=== PATIENT | male | born 1955 | race Caucasian/White ===

== ENCOUNTER 2020-10-07 10:35 | Day surgery (SDC) | payer MEDICARE ==
[2020-10-07] VITALS (8 sets, daily range): BP systolic 113–137; BP diastolic 73–89; PULSE 74–83; TEMP 97.7–98.1
[~2020-10-07] VITALS: Ht 177.8 cm; Wt 103.6 kg
[2020-10-07] MEDS ORDERED: ASPIRIN 81M81 MG/TA2 PO (11:59)
[2020-10-07] MEDS ORDERED: LOTREL 10 MG-401 CAP PO (12:00)
[2020-10-07] MEDS ORDERED: WELLBUTRIN XL300 M1 PO (12:00)
[2020-10-07] MEDS ORDERED: ZOCOR 20MG20 MG PO (12:01)
[2020-10-07] MEDS ORDERED: NEURONTIN300 MG/CAP PO (12:01)
[2020-10-07] MEDS ORDERED: TRELEGY ELLIPT1 EACH IH (12:02)
[2020-10-07] MEDS ORDERED: ULTRAM 50MG TAB50 MG PO (12:02)
[2020-10-07] MEDS ORDERED: INDERAL40 MG PO (12:03)
--- NOTE | 2020-10-07 13:37 | NUR ---
Patient returns to room 4 per cart from PACU accompanied by Quiana MANZANARES and is awake and alert. IV fluids infusing and site is free of redness or swelling. Urinal in place and has dribbled bright red blood only. IV to INT and ambulatory to BR on oxygen tank at 4L per nasal cannula.
--- NOTE | 2020-10-07 13:52 | NUR ---
Returns to room and remains on oxygen at 4L per nasal cannula. Unable to urinate. Drinking water and eating muffin. Spouse in room.
--- NOTE | 2020-10-07 14:07 | NUR ---
Continues to drink water and rest on edge of cart.
--- NOTE | 2020-10-07 14:22 | NUR ---
Amulatory to bathroom on oxygen. Able to void and returns to room. States urine was bloody. Resting on cart and drinking more water.
--- NOTE | 2020-10-07 14:37 | NUR ---
Drinking water and denies pain or nausea.
--- NOTE | 2020-10-07 15:00 | NUR ---
Again voids and states it is less blood and more urine. Has done well forcing fluids. Oxygen down to 2L per nasal cannula and sats 90%.
--- NOTE | 2020-10-07 15:35 | NUR ---
INT discontinued and is dressed. Oxygen removed and sats 90%. Dismissal instructions given and voices understanding of these. Provided urinal for ride home.
--- NOTE | 2020-10-07 15:43 | NUR ---
Patient dismissed to home driven by spouse and taken to the front door per wheelchair and assisted into vehicle with instructions in hand.
[2021-02-12] MEDS ORDERED: NORCO 325 MG-7.1 TAB PO (10:35)
== END 2020-10-07 15:43 | disposition home or self-care (01) ==
LOC: SDCO 10:35
DX: C67.8 Malignant neoplasm of overlapping sites of bladder (principal); C67.0 Malignant neoplasm of trigone of bladder; K40.90 Unilateral inguinal hernia, without obstruction or gangrene, not specified as recurrent; K42.9 Umbilical hernia without obstruction or gangrene; J44.9 Chronic obstructive pulmonary disease, unspecified; M19.90 Unspecified osteoarthritis, unspecified site; E78.00 Pure hypercholesterolemia, unspecified; E78.5 Hyperlipidemia, unspecified; E78.2 Mixed hyperlipidemia; I10 Essential (primary) hypertension; F17.210 Nicotine dependence, cigarettes, uncomplicated; Z85.828 Personal history of other malignant neoplasm of skin; Z79.82 Long term (current) use of aspirin; Z20.822 Contact with and (suspected) exposure to COVID-19; Z79.899 Other long term (current) drug therapy; Z88.0 Allergy status to penicillin
CPT/HCPCS: C2617; J0690; J1100; J2405; J2704; J3010; J7120; Q9967

== ENCOUNTER 2020-11-04 07:19 | Day surgery (SDC) | payer MEDICARE ==
[2020-11-04] VITALS (8 sets, daily range): BP systolic 94–118; BP diastolic 58–77; PULSE 58–72; TEMP 98.1–98.5
[~2020-11-04] VITALS: Ht 177.8 cm; Wt 103.6 kg
[~2020-11-04 07:19] MED LIST: ASPIRIN 81M81 MG/TA2 PO; INDERAL40 MG PO; LOTREL 10 MG-401 CAP PO; NEURONTIN300 MG/CAP PO; TRELEGY ELLIPT1 EACH IH; ULTRAM 50MG TAB50 MG PO; WELLBUTRIN XL300 M1 PO; ZOCOR 20MG20 MG PO
--- NOTE | 2020-11-04 11:50 | NUR ---
Patient returns to room 6 per cart from PACU accompanied by Heaven MANZANARES and is awake and alert. Temp 98.4 and sats 94% on 3L per nasal cannula. SCD's in place. HOB at 30 degrees. Patient received spinal anesthetic and states that he is having mild tingling in upper thighs. Legs warm to touch and +2 bilateral pedal pulses noted. IV fluids infusing now at TKO. Requesting snack and given muffin and calderon crackers.
--- NOTE | 2020-11-04 12:05 | NUR ---
Tolerated muffin and crackers. Denies pain. Wiggling legs. Encouraged deep breathing.
--- NOTE | 2020-11-04 12:20 | NUR ---
Patient moving legs and able to wiggle toes. Denies pain or nausea. Remains on oygen at 3L per nasal cannula.
--- NOTE | 2020-11-04 12:35 | NUR ---
Resting and moving legs freely. Remains on oxygen and O2 turned down to 2L. Continues to take deep breathes. Denies need to urinate.
--- NOTE | 2020-11-04 12:50 | NUR ---
Drinking water and sipping on coffee.
--- NOTE | 2020-11-04 13:14 | NUR ---
Sats down to 85% on 2L per nasal cannula. Oxygen back up to 3L per nasal cannula.
--- NOTE | 2020-11-04 13:20 | NUR ---
Continues to drink water and sip on coffee. Remains on O2 at 3L per nasal cannula. Denies pain or nausea.
--- NOTE | 2020-11-04 13:43 | NUR ---
Oxygen removed and assisted to the bathroom. Call light in reach.
--- NOTE | 2020-11-04 13:50 | NUR ---
Returns to room and room air sats 76%. States it drops that low at home when I check it with my pulse ox. Placed on 3L per nasal cannula. Will continue to monitor.
--- NOTE | 2020-11-04 13:55 | NUR ---
Dr. Alston notified and no orders. Dr. Alston states that he talked with the patient pre-op and patient refuses to stay in the hospital. States that the patient may be discharged to home after voiding and with low oxygen sats. This nurse strongly encouraged the patient to follow up PCP and be referred to pulmonary.
--- NOTE | 2020-11-04 14:15 | NUR ---
Again up to the bathroom and is able to void. Returns to room and dresses self. INT needle discontinued. Given dismissal instructions and voices understanding of home cares and follow up. Again stressed the importance of following up with PCP for low oxygen sats.
--- NOTE | 2020-11-04 14:23 | NUR ---
Patient dismissed to home driven by spouse and taken to the front door per wheelchair and assisted into vehicle with dismissal instructions in hand.
[2021-02-12] MEDS ORDERED: NORCO 325 MG-7.1 TAB PO (10:35)
== END 2020-11-04 14:23 | disposition home or self-care (01) ==
LOC: SDCO 07:19
DX: C67.8 Malignant neoplasm of overlapping sites of bladder (principal); J44.9 Chronic obstructive pulmonary disease, unspecified; E78.2 Mixed hyperlipidemia; F17.210 Nicotine dependence, cigarettes, uncomplicated; Z79.82 Long term (current) use of aspirin; Z85.828 Personal history of other malignant neoplasm of skin
CPT/HCPCS: C1769; J0690; J2250; J2704; J3010; J7120

== ENCOUNTER → 2021-02-17 | Outpatient (CLI) | payer MEDICARE ==
[~2021-02-17] VITALS: Ht 177.8 cm; Wt 101.7 kg
[2021-02-17] VITALS (9 sets, daily range): BP systolic 115–135; BP diastolic 74–91; PULSE 77–84; TEMP 98.3
[~2021-02-17] MED LIST changes: +LOTENSIN40 MG PO; +MOTRIN 800800 MG/TAB PO; +NORCO 325 MG-7.1 TAB PO; +XYZAL5 MG PO
== END ==
LOC: COL.RAD 09:36
DX: C80.1 Malignant (primary) neoplasm, unspecified (principal); C79.51 Secondary malignant neoplasm of bone
CPT/HCPCS: 27406; 27433

== ENCOUNTER 2021-04-16 13:13 | Day surgery (SDC) | payer MEDICARE ==
[~2021-04-16] VITALS: Ht 177.8 cm; Wt 102.9 kg
[~2021-04-16 13:13] MED LIST changes: -LOTENSIN40 MG PO; -MOTRIN 800800 MG/TAB PO; -XYZAL5 MG PO
[2021-04-16] MEDS ORDERED: MOTRIN 800800 MG/TAB PO (13:45)
[2021-04-16] MEDS ORDERED: LOTENSIN40 MG PO (13:48)
[2021-04-16] MEDS ORDERED: XYZAL5 MG PO (13:49)
[2021-04-16 13:50] VITALS: BP 165/95; PULSE 79; TEMP 98.2
[2021-04-16 17:23] VITALS: BP 158/93; PULSE 88
--- NOTE | 2021-04-16 17:23 | NUR ---
Patient returns to room 2 per cart from surgery and is awake and alert. Temp 97.0 and sats 92% on 5L per nasal cannula. Right port a catheter site incisions covered with Exofin skin glue. Wound edges well approximated. Siderails up x2 and call light in reach. Spouse in room.
[2021-04-16 17:38] VITALS: BP 167/95; PULSE 86
--- NOTE | 2021-04-16 17:38 | NUR ---
Eating muffin, crackers, and drinking coffee.
[2021-04-16 17:53] VITALS: BP 156/87; PULSE 89
--- NOTE | 2021-04-16 17:53 | NUR ---
Tolerated muffin and coffee. IV discontinued and site is free of redness. Sats maintained at 89-92 on 5L per nasal cannula. Assisted patient with dressing.
--- NOTE | 2021-04-16 18:07 | NUR ---
Dismissal instructions signed and patient and spouse both verbalize understanding of these. Provided port a catheter packet.
--- NOTE | 2021-04-16 18:11 | NUR ---
Patient dismissed to home driven by spouse and taken to the front door per wheelchair and assisted into vehicle with instructions in hand.
== END 2021-04-16 18:11 | disposition home or self-care (01) ==
LOC: SDCO 13:13
DX: C24.9 Malignant neoplasm of biliary tract, unspecified (principal); I10 Essential (primary) hypertension; E78.5 Hyperlipidemia, unspecified; M19.90 Unspecified osteoarthritis, unspecified site; J44.9 Chronic obstructive pulmonary disease, unspecified; Z79.899 Other long term (current) drug therapy; Z79.82 Long term (current) use of aspirin; Z87.891 Personal history of nicotine dependence; Z85.51 Personal history of malignant neoplasm of bladder
CPT/HCPCS: C1788; J0690; J1644; J7120

== ENCOUNTER 2021-06-12 13:35 | Inpatient (IN) | payer MEDICARE ==
[~2021-06-12] VITALS: Ht 177.8 cm; Wt 103.8 kg
[2021-06-12] VITALS (82 sets, daily range): BP systolic 134–163; BP diastolic 93–106; PULSE 82; TEMP 97.4; O2SAT 82–96
[~2021-06-12 13:35] MED LIST changes: +LOTENSIN40 MG PO; +MOTRIN 800800 MG/TAB PO; +XYZAL5 MG PO
[2021-06-12 14:28] LABS: BASO # 0.1 K/mm3 (0.0-0.2); BASO % 1.3 % (0.0-2.0); EOS # 0.1 K/mm3 (0.0-0.7); EOS % 2.1 % (0.0-4.0); GRAN # 2.6 K/mm3 (1.4-6.5); GRAN % 68.9 % (42.2-75.2); HEMATOCRIT 39.1 % (42.0-52.0); HEMOGLOBIN 12.5 g/dl (13.5-18.0); LYMPH # 0.6 K/mm3 (1.2-3.4); LYMPH % 16.6 % (20.0-51.0); MEAN CELL VOLUME 96 fl (80.0-100.0); MEAN CORPUSCULAR HEMOGLOBIN 31 pg (27-31); MEAN CORPUSCULAR HGB CONC 32 g/dl (33.0-37.0); MONO # 0.4 K/mm3 (0.1-0.6); MONO % 10.8 % (1.7-9.3); RED BLOOD COUNT 4.09 M/mm3 (4.20-5.60); REDCELL DISTRIBUTION WIDTH-CV 15.1 % (11.5-14.5)
[2021-06-12 14:50] LABS: ALBUMIN 3.1 gm/dL (3.4-4.8); BILIRUBIN,TOTAL 0.8 mg/dL (0.2-1.2); C-REACTIVE PROTEIN 1.83 mg/dL (0.00-0.50); CALCIUM 8.7 mg/dL (8.4-10.2); CREATININE, serum 0.81 mg/dL (0.72-1.25); POTASSIUM 4.5 mmol/L (3.5-4.5); TOTAL PROTEIN 6.6 gm/dL (6.2-8.1)
[2021-06-12 14:54] LABS: PLATELET COUNT 39 K/mm3 (130-400)
[2021-06-12 14:55] LABS: TROPONIN-I 0.01 ng/mL (0.00-0.033)
[2021-06-12 15:14] LABS: INR 1.1 (0.8-3.0)
[2021-06-12 15:17] LABS: PARTIAL THROMBOPLASTIN TIME 34.4 SECONDS (26.0-37.0)
[2021-06-12] MEDS ORDERED: FENTANYL 50MCG TD (15:36)
[2021-06-12] MEDS ORDERED: NORCO 325 MG-101 TAB PO (15:37)
[2021-06-12 18:56] LABS: HEMATOCRIT 37.1 % (42.0-52.0); HEMOGLOBIN 11.8 g/dl (13.5-18.0); MEAN CELL VOLUME 96 fl (80.0-100.0); MEAN CORPUSCULAR HEMOGLOBIN 31 pg (27-31); MEAN CORPUSCULAR HGB CONC 32 g/dl (33.0-37.0); RED BLOOD COUNT 3.86 M/mm3 (4.20-5.60)
[2021-06-12 19:00] LABS: PLATELET COUNT 38 K/mm3 (130-400)
--- NOTE | 2021-06-12 21:13 | NUR ---
Patient arrives to ICU room 7 via ED stretcher. Patient is alert and oriented; he transfers independently to ICU bed with even, steady gait. Initial BP of 163/106; other vitals within normal limits. BP 134/93 after settled. Patient arrives receiving 6L oxygen via nasal cannula, tolerating well. Heparin drip infusing at 1850 units/hr to a right chest port. Heparin placed on standby upon patient's arrival due to critical Xa received by this RN at approximately 2100.
--- NOTE | 2021-06-12 21:30 | NUR ---
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 Patient states cruz was sent home with , Radha. Patient denies having any dentures, partials, or hearing aids. Belongings placed in patient closet.
[2021-06-12] MEDS ORDERED: SENNA-LAX8.6 MG PO (21:51)
[2021-06-12 23:38] LABS: HEMOGLOBIN 10.8 g/dl (13.5-18.0); MEAN CELL VOLUME 95 fl (80.0-100.0); MEAN CORPUSCULAR HEMOGLOBIN 30 pg (27-31); MEAN CORPUSCULAR HGB CONC 32 g/dl (33.0-37.0); RED BLOOD COUNT 3.56 M/mm3 (4.20-5.60); REDCELL DISTRIBUTION WIDTH-CV 15.2 % (11.5-14.5)
[2021-06-12 23:55] LABS: HEMATOCRIT 33.8 % (42.0-52.0)
[2021-06-12 23:56] LABS: PLATELET COUNT 38 K/mm3 (130-400)
[2021-06-13] VITALS (409 sets, daily range): BP systolic 116–140; BP diastolic 52–90; PULSE 67–98; TEMP 97.5–98.5; O2SAT 71–99
[2021-06-13 06:24] LABS: HEMOGLOBIN 11.1 g/dl (13.5-18.0); MEAN CELL VOLUME 94 fl (80.0-100.0); MEAN CORPUSCULAR HEMOGLOBIN 31 pg (27-31); MEAN CORPUSCULAR HGB CONC 32 g/dl (33.0-37.0); RED BLOOD COUNT 3.64 M/mm3 (4.20-5.60); REDCELL DISTRIBUTION WIDTH-CV 15.1 % (11.5-14.5)
[2021-06-13 06:29] LABS: HEMATOCRIT 34.3 % (42.0-52.0)
[2021-06-13 06:30] LABS: PLATELET COUNT 40 K/mm3 (130-400)
[2021-06-13 06:39] LABS: CALCIUM 8.3 mg/dL (8.4-10.2); CREATININE, serum 0.7 mg/dL (0.72-1.25); POTASSIUM 4.1 mmol/L (3.5-4.5)
--- NOTE | 2021-06-13 07:00 | NUR ---
RECEIVED REPORT FROM GLENNA PATEL. PT SLEEPING ON 7L HFNC. VSS. CALL LIGHT AND URINAL WITHIN REACH.
[2021-06-13 12:14] LABS: HEMOGLOBIN 11.8 g/dl (13.5-18.0); MEAN CELL VOLUME 97 fl (80.0-100.0); MEAN CORPUSCULAR HEMOGLOBIN 31 pg (27-31); MEAN CORPUSCULAR HGB CONC 32 g/dl (33.0-37.0); PLATELET COUNT 51 K/mm3 (130-400); RED BLOOD COUNT 3.78 M/mm3 (4.20-5.60); REDCELL DISTRIBUTION WIDTH-CV 15.5 % (11.5-14.5)
[2021-06-13 12:18] LABS: HEMATOCRIT 36.8 % (42.0-52.0)
--- NOTE | 2021-06-13 12:58 | NUR ---
Child Care Counselor visited briefly with patient. Nothing else needed at this time.
--- NOTE | 2021-06-13 14:17 | NUR ---
SW met with patient to complete intake. Patient states that he lives with his Radha [phone] in [place]. Patient provides that he does not utilize DME at this time and is independent with ADL's, PCP is Dr. Cleveland, pharmacy he provides is in [place], DPOA is spouse. Patient provides that he plans to return to his home up on DC. SW will continue to follow. DC Plan: home with spouse in [place]
--- NOTE | 2021-06-13 14:37 | NUR ---
REPORT CALLED TO GLENNA DIALLO. ALL PERSONAL BELONGINGS SENT WITH PT. PT TRANSFERRED VIA WC ON 7L HFNC IN . ACCOMPANYING PT.
--- NOTE | 2021-06-13 15:00 | NUR ---
Patient arrived to [facility] about this time, alert/oriented, present in the room, reports he received pain pill around 1430 and stated it is starting to help/ he take [place] every 4-6 hours at home, lungs are CTA/ diminished throughout, he denies resp.difficulty at rest, BLE 2+ edema, heart RRR/SR on tele, some right calf discomfort and there is an ordered BLE doppler for 06/15/21, he is on 6L. o2, Hep gtt @ 15.5, denies needs, I will continue to monitor
--- NOTE | 2021-06-13 19:09 | NUR ---
Hepxa 0.51 WNL, no change and continue TRA 15.5/hr, next Hepxa 06/14/21 @ 0600
--- NOTE | 2021-06-13 20:00 | NUR ---
Patient is resting in bed, alert and oriented x 4, 7L O2 NC. Hep gtt at 15.5ml/hr/ Telemetry in place, NSR. Complains of pain, PRN provided. Assessment completed, medications provided. No further needs at this time. Call light within reach.
[2021-06-13 20:39] LABS: BASO % 1.1 % (0.0-2.0); EOS % 1.4 % (0.0-4.0); GRAN # 1.8 K/mm3 (1.4-6.5); GRAN % 63.7 % (42.2-75.2); HEMATOCRIT 38.1 % (42.0-52.0); HEMOGLOBIN 12.4 g/dl (13.5-18.0); LYMPH # 0.6 K/mm3 (1.2-3.4); LYMPH % 19.8 % (20.0-51.0); MEAN CELL VOLUME 96 fl (80.0-100.0); MEAN CORPUSCULAR HEMOGLOBIN 31 pg (27-31); MEAN CORPUSCULAR HGB CONC 33 g/dl (33.0-37.0); MONO # 0.4 K/mm3 (0.1-0.6); PLATELET COUNT 66 K/mm3 (130-400); RED BLOOD COUNT 3.96 M/mm3 (4.20-5.60); REDCELL DISTRIBUTION WIDTH-CV 15.7 % (11.5-14.5)
[2021-06-14 04:24] VITALS: BP 120/58; PULSE 63; TEMP 98.3
--- NOTE | 2021-06-14 06:57 | NUR ---
Patient had an unventful night. He just asked for pain medication once. Continues with the same rate of HEP DRIP. Report given to day RN.
[2021-06-14 08:00] VITALS: BP 139/87; PULSE 76; TEMP 98.5
--- NOTE | 2021-06-14 08:15 | NUR ---
Assessment completed, alert/oriented, vital signs stable, currently on 6-7L. o2 and sats are 90-95%, lungs are diminished throughout but CTA, heparin gtt continues @ 20.5ml/hr and awaiting HepXa results at this time, heart RRR/distal pulses are palpable, trace-1+ edema to BLE / doppler ordered for 06/14/21, he is up to his sink indepedently this morning to brush his teeth and wash up, we have ordered his breakfast, he has taken morning medications, denies other needs at this time
--- NOTE | 2021-06-14 08:25 | NUR ---
HepXa 0.44, no rate chage, continue TRA 20.5 ml /hr, next level recheck 06/15/21
[2021-06-14 11:38] VITALS: BP 126/75; PULSE 73; TEMP 97.6
[2021-06-14 17:00] VITALS: BP 121/73; PULSE 73; TEMP 98.1
--- NOTE | 2021-06-14 19:50 | NUR ---
Patient is standing at the door of his room. Alert and oriented x 4, reports continues with pain in his back, he just took PRN norco from day shift. Continuous with 6L O2 NC. Continuous with hep gtt. Assessment completed, medications provided. No further needs at this time. Call light within reach.
[2021-06-14 20:35] VITALS: BP 125/73; PULSE 86; TEMP 97.8
[2021-06-15 00:20] VITALS: BP 100/51; PULSE 79; TEMP 98.7
[2021-06-15 03:43] VITALS: BP 107/59; PULSE 76; TEMP 98.4
--- NOTE | 2021-06-15 07:16 | NUR ---
Patient has had a calm night. Complained about some blisters next to his cath port. Continues with back pain. PRN provided. Hep gtt running 15.5ml/hr. Report given to day RN.
[2021-06-15 08:54] VITALS: BP 109/88; PULSE 75; TEMP 97.3
[2021-06-15 10:17] LABS: BASO % 0.8 % (0.0-2.0); EOS # 0.1 K/mm3 (0.0-0.7); EOS % 3.5 % (0.0-4.0); GRAN # 1.4 K/mm3 (1.4-6.5); GRAN % 54.4 % (42.2-75.2); LYMPH # 0.6 K/mm3 (1.2-3.4); LYMPH % 24.3 % (20.0-51.0); MEAN CELL VOLUME 98 fl (80.0-100.0); MEAN CORPUSCULAR HEMOGLOBIN 31 pg (27-31); MEAN CORPUSCULAR HGB CONC 32 g/dl (33.0-37.0); MONO # 0.4 K/mm3 (0.1-0.6); PLATELET COUNT 57 K/mm3 (130-400); RED BLOOD COUNT 3.57 M/mm3 (4.20-5.60)
[2021-06-15 10:21] LABS: HEMATOCRIT 34.8 % (42.0-52.0)
[2021-06-15 10:24] LABS: CALCIUM 8.4 mg/dL (8.4-10.2); CREATININE, serum 0.77 mg/dL (0.72-1.25); POTASSIUM 4.3 mmol/L (3.5-4.5)
--- NOTE | 2021-06-15 10:27 | NUR ---
PT RESTING IN BED. MORNING MEDICATIONS GIVEN. SHIFT ASSESSMENT COMPLETED. PORT FLUSHES AND HAS GOOD BLOOD RETURN. DENIES ANY PAIN. HEPARIN GTT AT 15.5. CONTINUING TO MONITOR.
[2021-06-15 12:00] VITALS: BP 120/66; PULSE 87; TEMP 97.6
--- NOTE | 2021-06-15 12:03 | NUR ---
First visit from the ballast cleaning machine operator. prayed with patient. No other needs right now.
[2021-06-15 16:00] VITALS: BP 134/57; PULSE 93; TEMP 97.6
[2021-06-15 21:22] VITALS: BP 139/79; PULSE 79; TEMP 98.1
--- NOTE | 2021-06-15 22:28 | NUR ---
PT SITTING ON SIDE OF BED, STATING HAS SOME REFLUX. CALLED TO SEE WHAT HE TAKES AT HOME, GOT ORDER FOR 40 MG PANTOPROZOLE FROM [facility]. PT STATES PAIN IS ABOUT 5/10. REQUESTED NORCO. REQUESTED NORCO BEFORE PROCEDURE TOMORROW. ASSESSMENT COMPLETED.
[2021-06-16] VITALS (15 sets, daily range): BP systolic 103–144; BP diastolic 56–96; PULSE 64–88; TEMP 9
[2021-06-16 05:25] LABS: BASO % 1.3 % (0.0-2.0); EOS # 0.1 K/mm3 (0.0-0.7); EOS % 3.9 % (0.0-4.0); GRAN # 1.1 K/mm3 (1.4-6.5); GRAN % 49.8 % (42.2-75.2); HEMATOCRIT 37.4 % (42.0-52.0); HEMOGLOBIN 11.5 g/dl (13.5-18.0); LYMPH # 0.6 K/mm3 (1.2-3.4); LYMPH % 25.8 % (20.0-51.0); MEAN CELL VOLUME 99 fl (80.0-100.0); MEAN CORPUSCULAR HEMOGLOBIN 30 pg (27-31); MEAN CORPUSCULAR HGB CONC 31 g/dl (33.0-37.0); MEAN PLATELET VOLUME 11.6 fl (7.4-10.4); MONO # 0.4 K/mm3 (0.1-0.6); MONO % 18.8 % (1.7-9.3); PLATELET COUNT 78 K/mm3 (130-400); RED BLOOD COUNT 3.78 M/mm3 (4.20-5.60); REDCELL DISTRIBUTION WIDTH-CV 16.6 % (11.5-14.5)
[2021-06-16 05:47] LABS: CALCIUM 9.3 mg/dL (8.4-10.2); CREATININE, serum 0.79 mg/dL (0.72-1.25); POTASSIUM 4.4 mmol/L (3.5-4.5)
[2021-06-16 05:52] LABS: PROTHROMBIN TIME 11.2 SECONDS (9.7-12.8)
--- NOTE | 2021-06-16 06:18 | NUR ---
Pt had an uneventful night. Pt slept most of night, heparin gtt running at 1550 units/hr. Pt heparin gtt will be stopped at 0630 for IVC filter placement surgery per orders. Pt has been NPO since midnight, small sip for pain medication and protonix. All medications given, call light in reach.
--- NOTE | 2021-06-16 08:22 | NUR ---
SEE MERGE FOR ALL MEDICATION ADMINISTRATION TIMES/DOSAGES AND INTRA/POST PROCEDURE SEDATION ASSESSMENTS.
--- NOTE | 2021-06-16 09:13 | NUR ---
MORNING MEDICATIONS GIVEN. SHIFT ASSESSMENT COMPLETED. DENIES ANY PAIN. IVC FILTER PLACEMENT TODAY. HEPARIN GTT STOPPED AT THIS TIME PER ORDERS. WILL CONTINUE TO MONITOR.
--- NOTE | 2021-06-16 11:31 | NUR ---
The patient may be able to discharge tomorrow. SW met with the patient to follow up and review discharge plan. The patient states that he still plans on returning home with his . He confirms that he already has continuous home oxygen from [facility]. He had no concerns for SW. *Discharge plan: home with *
--- NOTE | 2021-06-16 23:05 | NUR ---
PT IS PLEASANT ALERT AND ORIENTATED. WAS CURIOUS ABOUT BEING ABLE TO GET DISCHARGED WITH IBUPROFEN PRESCRIPTION INSTEAD OF TYLENOL DUE TO COST. PT STATES PAIN 10. NO OTHER NEEDS.
[2021-06-17 04:19] VITALS: BP 136/85; PULSE 83; TEMP 97.6
--- NOTE | 2021-06-17 06:01 | NUR ---
Pt had an uneventful night. Pt slept most of night. Pt states pain of 6/10 in back and generalized where cancer is at. Pt requested and took [place] at approximately this am. Pt states improvement to 2/10 with pain medication. Pt wanted to try to get refill prescription of Ibuprofen and not tylenol for discharge. All needs met, call light in reach.
[2021-06-17 06:44] LABS: HEMATOCRIT 38.3 % (42.0-52.0); HEMOGLOBIN 11.5 g/dl (13.5-18.0); MEAN CELL VOLUME 103 fl (80.0-100.0); MEAN CORPUSCULAR HEMOGLOBIN 31 pg (27-31); MEAN CORPUSCULAR HGB CONC 30 g/dl (33.0-37.0); PLATELET COUNT 123 K/mm3 (130-400); RED BLOOD COUNT 3.72 M/mm3 (4.20-5.60); REDCELL DISTRIBUTION WIDTH-CV 17.2 % (11.5-14.5)
[2021-06-17 07:01] LABS: CALCIUM 8.7 mg/dL (8.4-10.2); CREATININE, serum 0.75 mg/dL (0.72-1.25); POTASSIUM 4.2 mmol/L (3.5-4.5)
[2021-06-17 07:29] LABS: ANISOCYTOSIS 1+; BAND 2 % (0-10); BASOPHIL 2 % (0-2); EOSINOPHIL 4 % (0-4); LYMPHOCYTE 23 % (20.0-51.0); NEUTROPHILS 45 % (42.0-75.2); NUCLEATED RED BLOOD CELL 2 (0-6); POLYCHROMASIA 1+
[2021-06-17 07:30] LABS: HYPOCHROMIA 1+; PLATELET ESTIMATE DECREASED (NORMAL)
--- NOTE | 2021-06-17 08:00 | NUR ---
Pt. progressing with plan of care. Plan for pt. to get am meds and possible discharge today.
[2021-06-17 08:30] VITALS: BP 109/61; PULSE 90; TEMP 97.6
[2021-06-17] MEDS ORDERED: TYLENOL 325MG325 MG PO (09:43)
[2021-06-17] MEDS ORDERED: ELIQUIS 5MG PO (09:46)
--- NOTE | 2021-06-17 10:06 | NUR ---
The patient is to discharge back home with his today, 06/17. ADRIAN met with the patient and presented and read the IM form outloud to the patient. The patient verbalized understanding and signed the form. SW provided him with a copy. No additional needs at this time.
--- NOTE | 2021-06-17 12:00 | NUR ---
Pt. discharged home. Port de-accessed per protocol. All paperwork and appointments reviewed with patient. All questions answered. Pt. left floor with his O2 in use with AVA Hernandez.
== END 2021-06-17 12:00 | disposition home or self-care (01) | DRG 175 ==
LOC: COL.ER 13:35 → MEDICAL 17:48 → ICU 17:49 → MEDICAL 06-13 15:00
PROVIDERS: Internal Medicine Medical Oncology; Internal Medicine Pulmonary Disease; Nurse Practitioner; Physician Assistant; ADMIT Internal Medicine
PROC: 06H03DZ Insertion of Intraluminal Device into Inferior Vena Cava, Percutaneous Approach (ICD-10-PCS; principal; 2021-06-16)
DX: I26.92 Saddle embolus of pulmonary artery without acute cor pulmonale (principal); J96.01 Acute respiratory failure with hypoxia; J90 Pleural effusion, not elsewhere classified; D61.818 Other pancytopenia; I82.412 Acute embolism and thrombosis of left femoral vein; I10 Essential (primary) hypertension; E78.5 Hyperlipidemia, unspecified; J43.9 Emphysema, unspecified; I27.20 Pulmonary hypertension, unspecified; C80.1 Malignant (primary) neoplasm, unspecified; D69.59 Other secondary thrombocytopenia; T45.1X5A Adverse effect of antineoplastic and immunosuppressive drugs, initial encounter; M89.9 Disorder of bone, unspecified; Z20.822 Contact with and (suspected) exposure to COVID-19; Z85.51 Personal history of malignant neoplasm of bladder; Z92.21 Personal history of antineoplastic chemotherapy; Z87.891 Personal history of nicotine dependence; Z23 Encounter for immunization
CPT/HCPCS: 99223-AI; 99233-AI; 99239; C1880; C9113; J1644; J2250; J7040; Q9967

== ENCOUNTER 2021-08-03 15:32 | Observation (INO) | payer MEDICARE ==
[~2021-08-03] VITALS: Ht 177.8 cm; Wt 104.5 kg
[~2021-08-03 15:32] MED LIST changes: +ELIQUIS 5MG PO; +FENTANYL 50MCG TD; +NORCO 325 MG-101 TAB PO; +SENNA-LAX8.6 MG PO; +TYLENOL 325MG325 MG PO
[2021-08-03 16:30] VITALS: BP 127/79; PULSE 67; TEMP 98.3
[2021-08-03] MEDS ORDERED: COMPAZINE 110 MG/TAB PO (17:11)
[2021-08-03] MEDS ORDERED: PROTONIX 40MG T40 MG PO (17:11)
[2021-08-03] MEDS ORDERED: LASIX 20MG TABL20 MG PO (17:12)
[2021-08-03] MEDS ORDERED: FOLIC ACID 11 MG/TA1 PO (17:13)
[2021-08-03] MEDS ORDERED: VITAMIN B12 781 TAB PO (17:14)
[2021-08-03 17:38] LABS: HEMATOCRIT 37.8 % (42.0-52.0); HEMOGLOBIN 11.7 g/dl (13.5-18.0); MEAN CELL VOLUME 101 fl (80.0-100.0); MEAN CORPUSCULAR HEMOGLOBIN 31 pg (27-31); MEAN CORPUSCULAR HGB CONC 31 g/dl (33.0-37.0); MEAN PLATELET VOLUME 10.6 fl (7.4-10.4); PLATELET COUNT 259 K/mm3 (130-400); RED BLOOD COUNT 3.75 M/mm3 (4.20-5.60); REDCELL DISTRIBUTION WIDTH-CV 16.5 % (11.5-14.5)
[2021-08-03 18:02] LABS: ALANINE AMINOTRANSFERASE 14 U/L (0-55); ALBUMIN 3.1 gm/dL (3.4-4.8); ALKALINE PHOSPHATASE 126 U/L (40-150); ANION GAP 7 mmol/L (7-16); AST,SGOT 20 U/L (5-34); BILIRUBIN,TOTAL 0.7 mg/dL (0.2-1.2); BLOOD UREA NITROGEN 11 mg/dL (8-26); CALCIUM 9.7 mg/dL (8.4-10.2); CARBON DIOXIDE 38 mmol/L (23-31); CHLORIDE 97 mmol/L (98-107); CREATININE, serum 0.83 mg/dL (0.72-1.25); GLUCOSE 77 mg/dL (70-99); POTASSIUM 4.3 mmol/L (3.5-4.5); SODIUM 142 mmol/L (136-145); TOTAL PROTEIN 7.1 gm/dL (6.2-8.1)
[2021-08-03 18:14] LABS: TROPONIN-I < 0.010 ng/mL (0.00-0.033)
[2021-08-03 18:15] LABS: BAND 5 % (0-10); BASOPHIL 2 % (0-2); EOSINOPHIL 3 % (0-4); LYMPHOCYTE 23 % (20.0-51.0); NEUTROPHILS 54 % (42.0-75.2); NUCLEATED RED BLOOD CELL 1 (0-6)
[2021-08-03 18:16] LABS: ANISOCYTOSIS 1+; HYPOCHROMIA 1+; PLATELET ESTIMATE NORMAL (NORMAL)
[2021-08-03 20:36] VITALS: BP 119/70; PULSE 81; TEMP 98
--- NOTE | 2021-08-03 21:06 | NUR ---
Assessment complete and charted. Reports generalized pain. [place] not due til 2199. Patient aware. Denies other needs. Call light in reach.
[2021-08-03 23:40] VITALS: PULSE 78; TEMP 97.5
[2021-08-03 23:45] VITALS: BP 105/54
--- NOTE | 2021-08-04 02:03 | NUR ---
Reports 4/10 pain. Given PRN norco
[2021-08-04 03:13] VITALS: BP 102/60; PULSE 73; TEMP 97.6
--- NOTE | 2021-08-04 05:42 | NUR ---
Patient required norco during night for pain control. Otherwise uneventful night. Resting in bed this AM. Call light in reach.
[2021-08-04 06:40] LABS: HEMOGLOBIN 10.8 g/dl (13.5-18.0); MEAN CELL VOLUME 102 fl (80.0-100.0); MEAN CORPUSCULAR HEMOGLOBIN 31 pg (27-31); MEAN CORPUSCULAR HGB CONC 30 g/dl (33.0-37.0); MEAN PLATELET VOLUME 10.8 fl (7.4-10.4); PLATELET COUNT 220 K/mm3 (130-400); RED BLOOD COUNT 3.49 M/mm3 (4.20-5.60); REDCELL DISTRIBUTION WIDTH-CV 16.6 % (11.5-14.5)
[2021-08-04 06:49] LABS: HEMATOCRIT 35.5 % (42.0-52.0)
--- NOTE | 2021-08-04 06:50 | NUR ---
Report given to GLENNA Alanis
[2021-08-04 07:05] LABS: CALCIUM 8.5 mg/dL (8.4-10.2); CREATININE, serum 0.73 mg/dL (0.72-1.25); POTASSIUM 4.3 mmol/L (3.5-4.5)
[2021-08-04 07:15] VITALS: BP 140/86; PULSE 92; TEMP 98.1
[2021-08-04 07:26] LABS: ANISOCYTOSIS 1+; BAND 11 % (0-10); EOSINOPHIL 1 % (0-4); LYMPHOCYTE 26 % (20.0-51.0); METAMYELOCYTE 2 % (0-0); MYELOCYTE 1 % (0-0); NEUTROPHILS 46 % (42.0-75.2); NUCLEATED RED BLOOD CELL 1 (0-6); PLATELET ESTIMATE NORMAL (NORMAL)
[2021-08-04] MEDS ORDERED: ELIQUIS 5MG PO (09:37)
[2021-08-04] MEDS ORDERED: LEVAQUIN 5500 MG/TA1 PO (09:38)
[2021-08-04] MEDS ORDERED: PROAIR HFA0.09 MG/AC IH (09:39)
--- NOTE | 2021-08-04 10:26 | NUR ---
SW met with patient to discuss discharge plan. Patient lives at home with his Radha ([phone]) in [facility]. Patient is independent with his ADL's and utilizes a walker to assist with ambulation. Patient is on 5-6L of [place] oxygen at baseline that is managed through [facility]. PCP is Dr. anabel Agustin andhe [facility]in [facility] is [facility] for medications. Patient reports that he does have a DPOA-HC established listing his as his agent. Notified per [facility] Dora that patient is being downgraded to OBS status. Patient presented FORTE form and education provided. Patient's signed copy placed in chart and original provided to the patient. DIscharge plan: Home
--- NOTE | 2021-08-04 10:45 | NUR ---
Initial visit; Hudson is doing well and going to be discharged from the hospital today. Licensed Loan Officer wished him well and offered God's blessings.
[2021-08-04 11:20] VITALS: BP 140/92; PULSE 113; TEMP 98.7
--- NOTE | 2021-08-04 11:31 | NUR ---
0700 shift assessment completed. O2 on @ 5L via nasal canula. Upper lobes diminished with bases clear. No SOB noted @ rest. Telemetry on. Heart rate 113 bpm. INT rt. forearm intact, no redness noted. Denies complaints of pain.
--- NOTE | 2021-08-04 13:06 | NUR ---
Patient has been doing well this morning, and appears to be doing much better as compared to yesterday. IV in the right forearm was causing pain, so another IV was started. IV vancomycin was administered w/o difficulty. Patient will discharged @ approx. 1430.
--- NOTE | 2021-08-04 16:19 | NUR ---
Patient discharged home by this RN. IV and telemetry discontinued by this RN w/o difficulty. Patient escorted out by PCT via wheelchair.
== END 2021-08-04 15:00 | disposition home or self-care (01) ==
LOC: MEDICAL 15:32
PROVIDERS: Physician Assistant; ADMIT Internal Medicine
DX: J18.1 Lobar pneumonia, unspecified organism (principal); R53.1 Weakness; R42 Dizziness and giddiness; J96.10 Chronic respiratory failure, unspecified whether with hypoxia or hypercapnia; J43.9 Emphysema, unspecified; K59.00 Constipation, unspecified; I27.20 Pulmonary hypertension, unspecified; I10 Essential (primary) hypertension; M43.8X6 Other specified deforming dorsopathies, lumbar region; E78.5 Hyperlipidemia, unspecified; F32.A Depression, unspecified; Z66 Do not resuscitate; C79.89 Secondary malignant neoplasm of other specified sites; C78.2 Secondary malignant neoplasm of pleura; Z85.51 Personal history of malignant neoplasm of bladder; Z86.718 Personal history of other venous thrombosis and embolism; Z86.711 Personal history of pulmonary embolism; Z79.01 Long term (current) use of anticoagulants; Z95.828 Presence of other vascular implants and grafts; Z87.891 Personal history of nicotine dependence; Z79.899 Other long term (current) drug therapy
CPT/HCPCS: 99223-AI; G0378; J1956; J3370; J7050; Q9967